=== PATIENT | male | born 1975 ===

== ENCOUNTER 2022-08-29 18:55 | Emergency (ER) | payer OTHER, SELFPAY ==
--- NOTE | 2022-08-29 19:04 | ED.GENADULT ---
HPI - General Adult General Chief complaint: Weakness Stated complaint: Chest Pain & Weakness x2 days Time Seen by Provider: 08/29/22 18:58 Source: patient and EMS Mode of arrival: EMS Limitations: language barrier History of Present Illness HPI narrative: Patient is a 46-year-old male. He is from [place]. He does not speak [place]. Translation line was used for this encounter. 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 Apparently he was found in his bunk. There was potentially some shaking episodes. Was also reports of ?foaming at the mouth? patient has never had a seizure in the past. Here in the emergency department he states that other than feeling some fatigue he has no other specific complaints. He did have some vague chest discomfort at the time of the event on the ship but nothing currently. He is alert oriented x3. Denies headache. Denies any specific localizing weakness. Review of Systems Review of Systems ROS Unobtainable: All systems reviewed & are unremarkable except as noted in HPI and below Patient History Social History Smoking Status: Never smoker Exam Initial Vital Signs Initial Vital Signs: Vital Signs Pulse Rate 91 H 08/29/22 19:05 Respiratory Rate 16 08/29/22 19:05 Pulse Oximetry 98 08/29/22 19:05 Const General: cooperative, comfortable and No ill appearing HENAZ Head: normal to inspection and normocephalic Resp Effort & Inspection: normal respiratory effort Auscultation: clear to auscultation bilaterally Cardio Rate: regular rate Rhythm: regular rhythm GI Inspection: normal to inspection and non-distended Skin General: no rashes or lesions noted Neuro General: patient alert, patient awake and moves all extremities Speech: speech normal Gait: normal gait Motor: muscle tone normal throughout Sensory Exam: no sensory deficits noted Extrem General: normal to inspection and capillary refill normal Psych Appearance: grossly normal Course Orders Ordered: ED Orders 08/29/22 19:04 Complete Blood Count AUTO DIFF Stat Comprehensive Metabolic Panel Stat Ethanol (ETOH) Stat Lipase Stat Prolactin Stat 08/29/22 19:05 EKG-12 Lead Stat 08/29/22 19:13 CT head/brain wo con Stat Vital Signs Vital signs: Vital Signs - 8 hr 08/29/22 19:21 08/29/22 19:05 08/29/22 19:30 Temperature 97.7 F Pulse Rate 78 91 H 75 Respiratory Rate 16 16 12 Blood Pressure 119/78 Pulse Oximetry 98 98 100 Oxygen Delivery Method Room Air Room Air 08/29/22 19:31 08/29/22 19:31 08/29/22 20:00 Temperature Pulse Rate 79 Respiratory Rate 17 Blood Pressure 124/72 128/84 Pulse Oximetry 100 Oxygen Delivery Method 08/29/22 20:00 Temperature Pulse Rate 69 Respiratory Rate 15 Blood Pressure Pulse Oximetry 100 Oxygen Delivery Method Medical Decision Making Lab Data Lab results reviewed: Yes I reviewed the patient's lab results. 08/29/22 19:04 08/29/22 19:04 Labs: Lab Results 08/29/22 08/29/22 Range/Units 19:04 19:04 WBC 8.3 (4.5-11.0) X10^3/uL RBC 5.14 (4.5-5.9) X10^6/uL Hgb 14.9 (13.5-17.5) g/dL Hct 43.0 (41-53) % MCV 83.6 (80-100) fL MCH 29.0 (26-34) PG MCHC 34.6 (30-36) % RDW 13.7 (11.6-14.8) % Plt Count 207 (150-400) X10^3/uL Neut % (Auto) 65.5 (50-75) % Lymph % (Auto) 27.9 (25-40) % [place] % (Auto) 5.6 (3-14) % Eos % (Auto) 0.6 L (2-4) % Baso % (Auto) 0.4 (0-2) % Neut # (Auto) 5500 (9086-3352) /uL Lymph # (Auto) 2300 (1743-5714) /uL [place] # (Auto) 500 (0-900) /uL Eos # (Auto) 100 (0-450) /uL Baso # (Auto) 0 (0-100) /uL Sodium 137 (137-145) mmol/L Potassium 3.5 (3.4-5.1) mmol/L Chloride 102 (98-107) mmol/L Carbon Dioxide 27 (22-32) mmol/L BUN 13 (9-20) mg/dL Creatinine 0.79 (0.66-1.25) mg/dL Estimated GFR > 60 (>60) mL/min BUN/Creatinine Ratio 16.5 (6-22) Glucose 139 H (70-100) mg/dL Calcium 8.9 (8.4-10.2) mg/dL Total Bilirubin 1.0 (0.2-1.3) mg/dL AST 23 (17-59) IU/L ALT 25 (<50) IU/L Alkaline Phosphatase 68 (38-126) U/L Total Protein 7.6 (6.3-8.2) g/dL Albumin 4.4 (3.5-5.0) g/dL Globulin 3.2 (1.7-4.1) g/dL Albumin/Globulin Ratio 1.4 (1.0-2.8) Lipase 150 (23-300) U/L Prolactin 19.1 H (3.7-17.9) ng/mL Ethyl Alcohol < 10 ( - 10) mg/dL Imaging Data CT scan - head: Radiologist's Impression: PROCEDURE:? CT HEAD/BRAIN WO CON ? INDICATIONS:? headache and LOC ? TECHNIQUE:? Noncontrast 4.5 mm thick angled axial sections acquired from the foramen magnum to the vertex, with coronal and sagittal reformats.? For radiation dose reduction, the following was used:? automated exposure control, adjustment of mA and/or kV according to patient size.? ? COMPARISON:? None. ? FINDINGS:? Image quality:? Excellent.? ? CSF spaces:? Basal cisterns are patent.? No extra-axial fluid collections.? Ventricles are normal in size and shape.? ? Brain:? No midline shift.? No intracranial masses or hemorrhage.? Akbar-white matter interface is normal.? ? Skull and face:? Calvarium and visualized facial bones are intact, without suspicious lesions.? ? Sinuses:? Visualized sinuses and mastoids are clear.? ? IMPRESSION:? No acute intracranial abnormality. ECG Data Attestation: I personally reviewed and interpreted this ECG as follows: Interpretation: Sinus rhythm Ventricular rate is 75 Normal axis Normal QRS Normal QTC No ST T wave changes MDM Narrative Medical decision making narrative: Unsure the exact etiology of the event that happened earlier today. Potentially could have been a seizure although can not be 100% sure this. He denies any drug or alcohol. He is no localizing symptoms that would make me concerned about stroke. Low suspicion for ACS. 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 No indication for admission to the hospital. Informed him that when he returns home he should talk with his primary doctor. I did discharge him back to [employer] however I did not make any determination as to whether not he is fit for duty. That will be up the medical associated with his sharp. 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 Discharge Plan Departure Patient Disposition: Home Clinical Impression: Weakness Instructions: DI for Muscle Weakness Activity Restrictions/Additional Instructions: I do recommend that you continue any medications as directed. When you return home contact your primary doctor for a follow-up. Return to the emergency department for new or worsening symptoms. Stand Alone Forms: Patient Portal/API
[2022-08-29 19:05] VITALS: PULSE 91; RESP 16; O2SAT 98
--- NOTE | 2022-08-29 19:13 | DI.CT.S_ITS ---
PROCEDURE: CT HEAD/BRAIN WO CON INDICATIONS: headache and LOC TECHNIQUE: Noncontrast 4.5 mm thick angled axial sections acquired from the foramen magnum to the vertex, with coronal and sagittal reformats. For radiation dose reduction, the following was used: automated exposure control, adjustment of mA and/or kV according to patient size. COMPARISON: None. FINDINGS: Image quality: Excellent. CSF spaces: Basal cisterns are patent. No extra-axial fluid collections. Ventricles are normal in size and shape. Brain: No midline shift. No intracranial masses or hemorrhage. Akbar-white matter interface is normal. Skull and face: Calvarium and visualized facial bones are intact, without suspicious lesions. Sinuses: Visualized sinuses and mastoids are clear. IMPRESSION: No acute intracranial abnormality. Dictated by: Triston Lee M.D. on 08/29/2022 at 19:47 Approved by: Triston Lee M.D. on 08/29/2022 at 19:49
[2022-08-29 19:21] VITALS: BP 119/78; PULSE 78; RESP 16; TEMP 36.5; O2SAT 98
[2022-08-29 19:26] LABS: Add Manual Diff / Slide Review NO; Basophils Absolute Auto 0 /uL (0-100); Basophils Percent Auto 0.4 % (0-2); Eosinophils Absolute Auto 100 /uL (0-450); Eosinophils Percent Auto 0.6 % (2-4); Hemoglobin 14.9 g/dL (13.5-17.5); Lymphocytes Absolute Auto 2300 /uL (1100-4500); Lymphocytes Percent Auto 27.9 % (25-40); Mean Corpuscular HGB Conc 34.6 % (30-36); Mean Corpuscular Volume 83.6 fL (80-100); Monocytes Absolute Auto 500 /uL (0-900); Monocytes Percent Auto 5.6 % (3-14); Neutrophils Absolute Auto 5500 /uL (1500-7000); Neutrophils Percent Auto 65.5 % (50-75); Platelet Count 207 X10^3/uL (150-400); Red Blood Cell Count 5.14 X10^6/uL (4.5-5.9); Red Cell Distribution Width 13.7 % (11.6-14.8); White Blood Cell Count 8.3 X10^3/uL (4.5-11.0)
[2022-08-29 19:30] VITALS: PULSE 75; RESP 12; O2SAT 100
[2022-08-29 19:31] VITALS: BP 124/72; PULSE 79; RESP 17; O2SAT 100
[2022-08-29 19:42] LABS: Alanine Aminotransferase 25 IU/L (<50); Albumin 4.4 g/dL (3.5-5.0); Albumin Globulin Ratio 1.4 (1.0-2.8); Alkaline Phosphatase 68 U/L (38-126); Aspartate Aminotransferase 23 IU/L (17-59); BUN Creatinine Ratio 16.5 (6-22); Blood Urea Nitrogen 13 mg/dL (9-20); Calcium 8.9 mg/dL (8.4-10.2); Carbon Dioxide 27 mmol/L (22-32); Chloride 102 mmol/L (98-107); Estimated Glomerular Filt Rate > 60 mL/min (>60); Ethanol (ETOH) < 10 mg/dL; Globulin 3.2 g/dL (1.7-4.1); Glucose 139 mg/dL (70-100); HEMOLYSIS < 15 (0-50); Lipase 150 U/L (23-300); Potassium 3.5 mmol/L (3.4-5.1); Sodium 137 mmol/L (137-145); Total Protein 7.6 g/dL (6.3-8.2)
[2022-08-29 19:57] LABS: Prolactin 19.1 ng/mL (3.7-17.9)
[2022-08-29 20:00] VITALS: BP 128/84; PULSE 69; RESP 15; O2SAT 100
== END 2022-08-29 20:34 | disposition home or self-care (01) ==
PROVIDERS: Emergency Provider Emergency Medicine
DX: R53.1 Weakness (principal); R07.9 Chest pain, unspecified; Y99.0 Civilian activity done for income or pay
CPT/HCPCS: 36415; 70450; 80053; 80320; 83690; 84146; 85025; 93005; 93010; 99283